=== PATIENT | male | born 1940 | race Caucasian/White ===

== ENCOUNTER 2017-06-21 17:45 | Inpatient (IN) | payer OTHER ==
[2017-06-21 19:22] VITALS: BMI 24.3
--- NOTE | 2017-06-21 21:06 | HP ---
CIWA Score - CIWA Score Nausea/Vomitin-Mild Nausea/No Vomiting Muscle Tremors: 4-Moderate,w/Arms Extend Anxiety: 4-Mod. Anxious/Guarded Agitation: 4-Moderately Restless Paroxysmal Sweats: 1-Minimal Palms Moist Orientation: 1-Uncertain about Date Tacttile Disturbances: 0-None Auditory Disturbances: 0-None Visual Disturbances: 0-None Headache: 0-None Present CIWA-Ar Total Score: 15 Admission ROS [facility] - HPI Chief Complaint: WITHDRAWAL SX Allergies/Adverse Reactions: Allergies Allergy/AdvReac Type Severity Reaction Status Date / Time No Known Allergies Allergy Verified 06/21/17 21:01 History of Present Illness: 76 YEARS OLD MALE WITH LONG HISTORY OF ALCOHOL NICOTINE DEPENDENCE HAS HYPERTENSION DENIES MENTAL ILLNESS IS ADMITTED TO DETOX PATIENT WAS TREATED AT [facility] "HOURS" FOR CHEST PAIN, NEGATIVE FINDING, RELEASED TO [facility] FOR ALCOHOL DETOX Exam Limitations: No Limitations - Ebola screening Have you traveled outside of the country in the last 21 days: No (N) Have you had contact with anyone from an Ebola affected area: No Have you been sick,other than usual withdrawal symptoms: No Do you have a fever: No - Review of Systems Constitutional: Changes in sleep, Weight Stable EENT: reports: Dental Problems (MULTIPLE TEETH MISSING) Respiratory: reports: No Symptoms reported Cardiac: reports: No Symptoms Reported GI: reports: Nausea, Poor Fluid Intake, Abdominal cramping : reports: No Symptoms Reported Musculoskeletal: reports: No Symptoms Reported Integumentary: reports: Bruising (HANDS + ARMS FROM "THEY TRY TO GET BLOOD FROM ME") Neuro: reports: Tremors Endocrine: reports: No Symptoms Reported Hematology: reports: No Symptoms Reported Psychiatric: reports: No Sypmtoms Reported, Judgement Intact, Mood/Affect Appropiate Other Systems: Reviewed and Negative Patient History - Patient Medical History Hx Anemia: No Hx Asthma: No Hx Chronic Obstructive Pulmonary Disease (COPD): No Hx Cancer: No Hx Cardiac Disorders: No Hx Congestive Heart Failure: No Hx Hypertension: No Hx Hypercholesterolemia: No Hx Pacemaker: No HX Cerebrovascular Accident: No Hx Seizures: No Hx Dementia: No Hx Diabetes: No Hx Gastrointestinal Disorders: No Hx Liver Disease: No Hx Genitourinary Disorders: No Hx Sexually Transmitted Disorders: No Hx Renal Disease (ESRD): No Hx Thyroid Disease: No Hx Human Immunodeficiency Virus (HIV): No Hx Hepatitis C: No Hx Depression: No Hx Suicide Attempt: No Hx Bipolar Disorder: No Hx Schizophrenia: No - Patient Surgical History Past Surgical History: No - PPD History Previous Implant?: Yes Documented Results: Negative w/o proof Implanted On Prior [facility] Admission?: No PPD to be Administered?: Yes - Smoking Cessation Smoking history: Current every day smoker Have you smoked in the past 12 months: Yes Aproximately how many cigarettes per day: 1 Cigars Per Day: 0 Hx Chewing Tobacco Use: No Initiated information on smoking cessation: Yes 'Breaking Loose' booklet given: 06/21/17 - Substance & Tx. History Hx Alcohol Use: Yes Hx Substance Use: No Substance Use Type: Alcohol Hx Substance Use Treatment: No - Substances Abused Alcohol Route: Oral Frequency: Daily Amount used: 1/2 P[place]ISKY Age of first use: 15 Date of Last Use: 06/20/17 Family Disease History - Family Disease History Family Disease History: Other: Father (), Mother () Admission Physical Exam [facility] - Vital Signs Vital Signs: Vital Signs - 24 hr 06/21/17 19:15 Temperature 97.5 F L Pulse Rate 112 H Respiratory 18 Rate Blood Pressure 140/87 - Physical General Appearance: Yes: Nourished, Appropriately Dressed, Mild Distress, Tremorous, Irritable, Sweating, Anxious HEENTM: Yes: Hearing grossly Normal, Normal ENT Inspection, Normocephalic, Normal Voice Respiratory: Yes: Chest Non-Tender, Lungs Clear, Normal Breath Sounds, No Respiratory Distress, No Accessory Muscle Use Neck: Yes: Supple, Trachea in good position Breast: Yes: Breasts Symetrical Cardiology: Yes: Regular Rhythm, Regular Rate, S1, S2 Abdominal: Yes: Non Tender, Soft Genitourinary: Yes: Within Normal Limits Back: Yes: Normal Inspection Musculoskeletal: Yes: full range of Motion, Gait Steady Neurological: Yes: Alert, Motor Strength 5/5, Normal Mood/Affect, Normal Response Integumentary: Yes: Warm, Other (MULTIPLE BRUISING FROM HOSPITAL "THEY TRY TO GET BLOOD FROM ME") Lymphatic: Yes: Within Normal Limits - Diagnostic (1) Alcohol dependence with uncomplicated withdrawal Current Visit: Yes Status: Acute (2) Mild hypertension Current Visit: Yes Status: Chronic Comment: NO TREATMENT (3) Nicotine dependence Current Visit: Yes Status: Acute Qualifiers: Nicotine product type: cigarettes Substance use status: in withdrawal Qualified Code(s): F17.213 - Nicotine dependence, cigarettes, with withdrawal Cleared for Admission [facility] - Detox or Rehab [facility] Level of Care: Medically Managed Detox Regimen/Protocol: Librium [facility] Breath Alcohol Content Breath Alcohol Content: 0 Urine Drug Screen - Results Drug Screen Negative: No Urine Drug Screen Results: BZO-Benzodiazepines
[2017-06-21] MEDS ORDERED: MAG HYDROX/AL HYDROX/SIMETH 30 ML UNIT-DOSE CUP PO PRN (21:12)
[2017-06-21] MEDS ORDERED: ACETAMINOPHEN 325 MG TABLET (FP) PO PRN (21:12)
[2017-06-21] MEDS ORDERED: MENTHOL/PHENOL 1 EACH UD MM PRN (21:12)
[2017-06-21] MEDS ORDERED: MAGNESIUM HYDROX 2400MG/30ML ORAL SUSPENSION 30 ML CUP PO PRN (21:12)
[2017-06-21] MEDS ORDERED: diphenhydrAMINE HCL 50 MG CAPSULE PO PRN (21:12)
[2017-06-21] MEDS ORDERED: MAGNESIUM CITRATE 300 ML BOTTLE PO PRN (21:12)
[2017-06-21] MEDS ORDERED: IBUPROFEN 400 MG TABLET (FP) PO PRN (21:12)
[2017-06-21] MEDS ORDERED: hydrOXYzine PAMOATE 50 MG CAPSULE (FP) PO PRN (21:12)
[2017-06-21] MEDS ORDERED: LOPERAMIDE HCL 2 MG CAPSULE PO PRN (21:12)
[2017-06-21] MEDS ORDERED: NICOTINE POLACRILEX 2 MG GUM BC PRN (21:12)
[2017-06-21] MEDS ORDERED: P-EPHED 60MG/TRIPROLIDI 2.5MG TABLET PO PRN (21:12)
[2017-06-21] MEDS ORDERED: NICOTINE 14 MG/24 HOURS TOPICAL PATCH TD PRN (21:12)
[2017-06-21] MEDS ORDERED: guaiFENesin/D-METHORPHAN HB 10 ML UNIT-DOSE CUPS PO PRN (21:12)
[2017-06-21] MEDS: chlordiazePOXIDE HCL 25 MG CAPSULE PO SCH (22:44)
[2017-06-21] MEDS: THIAMINE HCL 100 MG TABLET (FP) PO SCH (22:49)
--- NOTE | 2017-06-22 00:57 | PN ---
S Progress Note Note: Discussed abnormal EKG with the patient. EKG illustrated A-fib. Pt. reports having a history of a-fib and states he not prescribed any anti-coagulants or any other medications for management of a-fib. He denies chest pain, SOB, dyspnea on exertation or lightheadedness. Will continue to monitor. Last Vital Signs Temp Pulse Resp BP Pulse Ox 97.4 F L 59 L 18 147/96 06/21/17 22:51 06/21/17 22:51 06/21/17 22:51 06/21/17 22:51
[2017-06-22] MEDS: chlordiazePOXIDE HCL 25 MG CAPSULE PO SCH ×4 (05:21→22:44)
--- NOTE | 2017-06-22 10:00 | PN ---
[facility] CIWA - CIWA Score Nausea/Vomitin Muscle Tremors: 4-Moderate,w/Arms Extend Anxiety: 3 Agitation: 0-Normal Activity Paroxysmal Sweats: 3 Orientation: 4Disoriented Place/Person Tacttile Disturbances: 2-Mild Itch/Numbness/Burn Auditory Disturbances: 0-None Visual Disturbances: 0-None Headache: 0-None Present CIWA-Ar Total Score: 18 S Progress Note (SOAP) Subjective: Tremors, Fatigue, Interrupted Sleep. Objective: PT. A & O X 1 (DISORIENTED ABOUT DAY / DATE AND ABOUT CURRENT LOCATION). PT. OBSERVED AMBULATING IN ROOM. 06/22/17 10:00 Vital Signs Temperature 97.8 F 06/22/17 06:19 Pulse Rate 76 06/22/17 08:02 Respiratory Rate 18 06/22/17 06:19 Blood Pressure 153/95 06/22/17 08:02 O2 Sat by Pulse Oximetry (%) 06/22/17 10:01 ADMISSION LAB RESULTS PENDING. PATIENT REPORTS HISTORY OF A-FIB AND HTN (PATIENT DENIED THIS ON ADMISSION ASSESSMENT; HOWEVER, HE DID REPORT THAT JUST PRIOR TO ADMISSION TO [facility], HE HAD BEEN IN [facility] ER FOR "CHEST PAIN"). PATIENT HAS POOR RECOLLECTION OF MEDICATIONS THAT HE TAKES FOR THOSE CONDITIONS AND OF WHEN HE LAST TOOK THEM. WHEN ASKED, PATIENT REPORTS THAT HE DOES NOT CURRENTLY HAVE A PRIMARY CARE MEDICAL PROVIDER AND THAT HE GOES TO THE ER TO HAVE MEDICAL ISSUES TREATED WHEN THEY ARISE. 06/22/17 10:07 06/22/17 10:08 06/22/17 10:09 Assessment: 06/22/17 10:01 WITHDRAWAL SYMPTOMS. A-FIB, HTN (UNMANAGED). 06/22/17 10:05 Plan: CONTINUE DETOX. PATIENT TO BE SENT TO ER FOR FURTHER EVALUATION AND MANAGEMENT OF A-FIB AND HTN. SEE FOLLOWING PROGRESS NOTE.
--- NOTE | 2017-06-22 10:23 | PN ---
[facility] Progress Note Note: PATIENT ADMITTED YESTERDAY FOR DETOX FROM ALCOHOL. PATIENT REPORTS HISTORY OF A- FIB AND HTN. PATIENT HAS POOR RECOLLECTION OF MEDICATIONS THAT HE TAKES FOR THOSE TWO CONDITIONS AND OF WHEN HE LAST TOOK EACH OF THOSE MEDICATIONS. WHEN CONTACTED, PHARMACIST (NANNETTE) AT PATIENT'S PHARMACY ([facility], [address] [place] [address]) REPORTS SEVERAL DIFFERENT MEDICATIONS THAT PATIENT PRESCRIBED FOR HTN AND XARELTO (20 MG DAILY) FOR A-FIB. HOWEVER, NOT ALL OF THOSE MEDICATIONS WERE PICKED UP BY PATIENT WHEN LAST PRESCRIBED IN May,. PATIENT CURRENTLY REPORTS FATIGUE AND DIZZINESS. ADMISSION ASSESSMENT FROM YESTERDAY NOTES THAT PATIENT THAT PRIOR TO ADMISSION TO [facility] DETOX, PATIENT HAD BEEN EVALUATED IN [facility] ER FOR CHEST PAIN. AFTER CONSULTATION WITH DR. DEAN MD, PATIENT TO BE SENT TO [facility] ER FOR FURTHER EVALUATION. VS: BP: 153/89; 02: 99%; T; 96.3; P: 86; RR: 18. REPORT GIVEN TO DR. MINDY MD IN [facility] ER. PATIENT TAKEN VIA AMBULANCE TO [facility]. Myron MCDONALD NP.
[2017-06-22 11:08] LABS: URINE APPEARANCE CLEAR; URINE BILIRUBIN NEGATIVE (NEGATIVE); URINE BLOOD NEGATIVE (NEGATIVE); URINE COLOR LTYELLOW; URINE GLUCOSE (UA) NEGATIVE (NEGATIVE); URINE KETONE NEGATIVE (NEGATIVE); URINE LEUK ESTERASE NEGATIVE (NEGATIVE); URINE NITRITE NEGATIVE (NEGATIVE); URINE UROBILINOGEN NEGATIVE mg/dL (0.2-1.0)
[2017-06-22 11:09] LABS: MCH 33.8 pg (25.7-33.7); MCHC 34.1 g/dl (32.0-35.9); MEAN CELL VOLUME 99.3 fl (80-96); MEAN PLT VOLUME 9.1 fl (7.5-11.1); PLATELET COUNT 108 K/MM3 (134-434); RDW 14.9 % (11.9-15.9); WHITE BLOOD COUNT 4.1 K/mm3 (4.0-10.0)
[2017-06-22 11:16] LABS: ALBUMIN 2.5 g/dl (3.4-5.0); ANION GAP 9 (8-16); BILIRUBIN,TOTAL 0.5 mg/dL (0.2-1.0); CALCIUM 7.6 mg/dL (8.5-10.1); CO2 27 mmol/L (21-32); GLUCOSE,RANDOM 196 mg/dL (74-106); SGOT/AST 29 U/L (15-37); SGPT/ALT 28 U/L (12-78)
[2017-06-22 11:17] LABS: ALK PHOS 72 U/L (45-117); CREATININE 1.4 mg/dL (0.7-1.3); TOT PROT 5.2 g/dl (6.4-8.2)
[2017-06-22 11:41] LABS: URINE PROTEIN 1+ (NEGATIVE)
[2017-06-22 11:45] LABS: URINE BACTERIA RARE /hpf (NONE SEEN); URINE HYALINE CAST 1 /lpf; URINE MUCUS RARE; URINE WBC <1 /hpf (3-5)
[2017-06-22] MEDS: PRENATAL VITAMINS W/ FOLIC ACID TABLET (FP) PO SCH (12:08)
--- NOTE | 2017-06-22 18:44 | EKG ---
Test Reason : Blood Pressure : / mmHG Vent. Rate : 105 BPM Atrial Rate : 178 BPM P-R Int : 000 ms QRS Dur : 084 ms QT Int : 344 ms P-R-T Axes : 000 053 062 degrees QTc Int : 454 ms ATRIAL FIBRILLATION WITH RAPID VENTRICULAR RESPONSE SEPTAL INFARCT , AGE UNDETERMINED ABNORMAL ECG NO PREVIOUS ECGS AVAILABLE Confirmed by MONICA MARTINS MD ([id number]) on 06/22/2017 6:44:23 PM Referred By: Copma Bagley Confirmed By:MONICA MARTINS MD
--- NOTE | 2017-06-22 18:44 | EKG ---
Test Reason : Blood Pressure : / mmHG Vent. Rate : 094 BPM Atrial Rate : 129 BPM P-R Int : 000 ms QRS Dur : 084 ms QT Int : 348 ms P-R-T Axes : 000 059 059 degrees QTc Int : 435 ms ATRIAL FIBRILLATION WITH PREMATURE VENTRICULAR OR ABERRANTLY CONDUCTED COMPLEXES SEPTAL INFARCT (CITED ON OR BEFORE 21-JUN-2017) ABNORMAL ECG WHEN COMPARED WITH ECG OF 21-JUN-2017 21:29, NO SIGNIFICANT CHANGE WAS FOUND Confirmed by MONICA MARTINS MD ([id number]) on 06/22/2017 6:44:11 PM Referred By: Compa Bagley Confirmed By:MONICA MARTINS MD
--- NOTE | 2017-06-22 19:41 | PN ---
[facility] Progress Note Note: patient medically return from [facility] for continue detox
[2017-06-22] MEDS: chlordiazePOXIDE HCL 25 MG CAPSULE PO PRN (20:10)
[2017-06-22] MEDS: THIAMINE HCL 100 MG TABLET (FP) PO SCH (22:44)
[2017-06-23] MEDS: chlordiazePOXIDE HCL 25 MG CAPSULE PO SCH ×3 (05:18→17:07)
[2017-06-23] MEDS: chlordiazePOXIDE HCL 25 MG CAPSULE PO PRN (07:28)
[2017-06-23] MEDS: LISINOPRIL 20 MG TABLET (FP) PO SCH (07:54)
[2017-06-23] MEDS: METOPROLOL SUCCINATE 100 MG TAB.SR.24H (FP) PO SCH (07:55)
[2017-06-23] MEDS ORDERED: LISINOPRIL 20 MG TABLET (FP) PO SCH (10:00)
[2017-06-23] MEDS ORDERED: METOPROLOL SUCCINATE 100 MG TAB.SR.24H (FP) PO SCH (10:00)
[2017-06-23] MEDS: PRENATAL VITAMINS W/ FOLIC ACID TABLET (FP) PO SCH (10:55)
[2017-06-23] MEDS: RIVAROXABAN 20 MG TABLET PO SCH (10:59)
--- NOTE | 2017-06-23 14:54 | PN ---
S CIWA - CIWA Score Nausea/Vomitin Muscle Tremors: 3 Anxiety: 4-Mod. Anxious/Guarded Agitation: 2 Paroxysmal Sweats: 3 Orientation: 0-Oriented Tacttile Disturbances: 1-Very Mild Itch/Numbness Auditory Disturbances: 0-None Visual Disturbances: 0-None Headache: 2-Mild CIWA-Ar Total Score: 18 [facility] Progress Note (SOAP) Subjective: Interrupted sleep, anxious, sweating Objective: 06/23/17 14:51 Last Vital Signs Temp Pulse Resp BP Pulse Ox 97.0 F L 70 20 121/72 06/23/17 13:37 06/23/17 13:37 06/23/17 13:37 06/23/17 13:37 Laboratory Tests 06/21/17 06/22/17 06/22/17 10:55 08:00 08:00 WBC 4.1 RBC 4.00 Hgb 13.5 Hct 39.7 MCV 99.3 H MCH 33.8 H MCHC 34.1 RDW 14.9 Plt Count 108 L MPV 9.1 Sodium Potassium Chloride Carbon Dioxide Anion Gap BUN Creatinine Creat Clearance w eGFR Random Glucose Calcium Total Bilirubin AST ALT Alkaline Phosphatase Total Protein Albumin Urine Color Ltyellow Urine Appearance Clear Urine pH 7.0 Ur Specific [place] 1.015 Urine Protein 1+ H Urine Glucose (UA) Negative Urine Ketones Negative Urine Blood Negative Urine Nitrite Negative Urine Bilirubin Negative Urine Urobilinogen Negative Ur Leukocyte Esterase Negative Urine RBC None Urine WBC <1 Ur Epithelial Cells Rare Urine Bacteria Rare Hyaline Casts 1 Urine Mucus Rare RPR Titer Hepatitis C Antibody >11.0 H 06/22/17 06/22/17 08:00 08:00 WBC RBC Hgb Hct MCV MCH MCHC RDW Plt Count MPV Sodium 142 Potassium 3.1 L Chloride 106 Carbon Dioxide 27 Anion Gap 9 BUN 26 H Creatinine 1.4 H Creat Clearance w eGFR 49.27 Random Glucose 196 H Calcium 7.6 L Total Bilirubin 0.5 AST 29 ALT 28 Alkaline Phosphatase 72 Total Protein 5.2 L Albumin 2.5 L Urine Color Urine Appearance Urine pH Ur Specific [place] Urine Protein Urine Glucose (UA) Urine Ketones Urine Blood Urine Nitrite Urine Bilirubin Urine Urobilinogen Ur Leukocyte Esterase Urine RBC Urine WBC Ur Epithelial Cells Urine Bacteria Hyaline Casts Urine Mucus RPR Titer Nonreactive Hepatitis C Antibody Labs noted: last lab result on 06/22/17 shows: K 3.6, BUN 28, serum creatinine 1.1 Assessment: 06/23/17 14:52 Withdrawal symptoms Noted with azotemia Plan: Continue detox Azotemia: encouraged to drink more water for hydration
[2017-06-23] MEDS ORDERED: POTASSIUM CHLORIDE TABS 20 MEQ TABLET.ER (FP) PO ONE (19:06)
--- NOTE | 2017-06-23 19:09 | PN ---
[facility] Progress Note Note: k 3.1,bun 26,creat 1.4 hypokalemia with azothemia k dur 20 meq po now ,encourage oral fludi,k repeat bmp in am
[2017-06-23] MEDS: THIAMINE HCL 100 MG TABLET (FP) PO SCH (22:10)
[2017-06-23] MEDS: chlordiazePOXIDE 5 MG CAPSULE PO SCH (22:11)
[2017-06-24] MEDS: LISINOPRIL 20 MG TABLET (FP) PO SCH (05:29)
[2017-06-24] MEDS: chlordiazePOXIDE 5 MG CAPSULE PO SCH ×3 (05:29→17:10)
[2017-06-24] MEDS: METOPROLOL SUCCINATE 100 MG TAB.SR.24H (FP) PO SCH (05:29)
[2017-06-24] MEDS: RIVAROXABAN 20 MG TABLET PO SCH (10:09)
[2017-06-24] MEDS: PRENATAL VITAMINS W/ FOLIC ACID TABLET (FP) PO SCH (10:09)
[2017-06-24 10:33] LABS: ANION GAP 10 (8-16); CALCIUM 8.1 mg/dL (8.5-10.1); CO2 27 mmol/L (21-32); CREATININE 1.3 mg/dL (0.7-1.3); GLUCOSE,RANDOM 166 mg/dL (74-106)
--- NOTE | 2017-06-24 11:39 | PN ---
S Progress Note (SOAP) Subjective: Sweating, Fatigue, Tremors, H/A, Fatigue. Objective: PT. A & O X 2 (DISORIENTED ABOUT DAY / DATE). PT. OBSERVED AMBULATING ON UNIT. NO ACUTE DISTRESS. PT. DENIES CHEST PAIN. 06/24/17 11:35 Vital Signs Temperature 97.1 F L 06/24/17 09:27 Pulse Rate 72 06/24/17 09:27 Respiratory Rate 18 06/24/17 09:27 Blood Pressure 140/88 06/24/17 09:27 O2 Sat by Pulse Oximetry (%) Laboratory Tests 06/21/17 06/22/17 06/22/17 10:55 08:00 08:00 WBC 4.1 RBC 4.00 Hgb 13.5 Hct 39.7 MCV 99.3 H MCH 33.8 H MCHC 34.1 RDW 14.9 Plt Count 108 L MPV 9.1 Sodium Potassium Chloride Carbon Dioxide Anion Gap BUN Creatinine Creat Clearance w eGFR Random Glucose Calcium Total Bilirubin AST ALT Alkaline Phosphatase Total Protein Albumin Urine Color Ltyellow Urine Appearance Clear Urine pH 7.0 Ur Specific [place] 1.015 Urine Protein 1+ H Urine Glucose (UA) Negative Urine Ketones Negative Urine Blood Negative Urine Nitrite Negative Urine Bilirubin Negative Urine Urobilinogen Negative Ur Leukocyte Esterase Negative Urine RBC None Urine WBC <1 Ur Epithelial Cells Rare Urine Bacteria Rare Hyaline Casts 1 Urine Mucus Rare RPR Titer Hepatitis C Antibody >11.0 H 06/22/17 06/22/17 06/24/17 08:00 08:00 07:00 WBC RBC Hgb Hct MCV MCH MCHC RDW Plt Count MPV Sodium 142 141 Potassium 3.1 L 3.3 L Chloride 106 104 Carbon Dioxide 27 27 Anion Gap 9 10 BUN 26 H 30 H Creatinine 1.4 H 1.3 Creat Clearance w eGFR 49.27 Random Glucose 196 H 166 H Calcium 7.6 L 8.1 L Total Bilirubin 0.5 AST 29 ALT 28 Alkaline Phosphatase 72 Total Protein 5.2 L Albumin 2.5 L Urine Color Urine Appearance Urine pH Ur Specific [place] Urine Protein Urine Glucose (UA) Urine Ketones Urine Blood Urine Nitrite Urine Bilirubin Urine Urobilinogen Ur Leukocyte Esterase Urine RBC Urine WBC Ur Epithelial Cells Urine Bacteria Hyaline Casts Urine Mucus RPR Titer Nonreactive Hepatitis C Antibody LABS NOTED. RESULTS OF REPEAT COMP. META. NOTED. 06/24/17 11:39 Assessment: 06/24/17 11:38 WITHDRAWAL SYMPTOMS. Plan: CONTINUE DETOX. K, 20 MEQ PO X 1 NOW, THEN 20 MEQ PO BID. D/C MAGNESIUM-CONTAINING MEDS. PATIENT INFORMED ABOUT POSITIVE RESULT OF ADMISSION HCV ANTIBODY TEST. PATIENT REPORTS HISTORY OF POSITIVE HCV HISTORY (NO TREATMENT). PATIENT ADVISED TO FOLLOW-UP WITH CRIME LAB ANALYST (PATIENT UNABLE TO RECALL NAME OF CRIME LAB ANALYST) OR TO GO TO [facility] FOR FURTHER EVALUATION AND FOLLOW-UP CARE AFTER DISCHARGE FROM DETOX. PATIENT VERBALIZED UNDERSTANDING OF RECOMMENDATIONS.
[2017-06-24] MEDS ORDERED: POTASSIUM CHLORIDE TABS 20 MEQ TABLET.ER (FP) PO ONE (12:30)
--- NOTE | 2017-06-24 15:24 | CONSULT ---
[facility] Psychiatric Consult - Data Date of interview: 06/24/17 Admission source: [facility] Identifying data: First admission to [facility] for this 76 y/o [place] male seeking detox treatmet on for alcohol dependence.Patient is ,a father of five,domiciled (lives alone),unemployed (retired from [employer] in [place]) and supported on SSI benefits as per self-report. Substance Abuse History: Discussed with Mr tan in this session.He confirms this report as an accurate account of his addiction to alcohol. Smoking Cessation. Smoking history: Current every day smoker. Have you smoked in the past 12 months: Yes. Aproximately how many cigarettes per day: 1. Cigars Per Day: 0. Hx Chewing Tobacco Use: No. Initiated information on smoking cessation : Yes. 'Breaking Loose' booklet given: 06/21/17. - Substance & Tx. History. Hx Alcohol Use: Yes. Hx Substance Use: No. Substance Use Type: Alcohol. Hx Substance Use Treatment: No. - Substances Abused. Alcohol. Route: Oral. Frequency: Daily. Amount used: 1/2 [place]. Age of first use: 15. Date of Last Use: 06/20/17 Medical History: Hypertension. Psychiatric History: Patient denies. Physical/Sexual Abuse/Trauma History: Patient denies. Additional Comment: Urine Drug Screen Results: BZO-Benzodiazepines.Noted. Mental Status Exam - Mental Status Exam Alert and Oriented to: Time (partially oriented to time : accurate about year 2017 but believes month to be February.Not oriented to exact date), Place, Person Patient Appearance: Well Groomed (appears his stated age) Mood: Hopeful, Euthymic (calm and serene) Affect: Appropriate, Normal Range Patient Behavior: Fatigued, Cooperative (friendly and well-mannered ) Speech Pattern: Clear, Appropriate Voice Loudness: Normal Thought Process: Intact, Goal Oriented Thought Disorder: Not Present Hallucinations: Denies Suicidal Ideation: Denies Homicidal Ideation: Denies Insight/Judgement: Poor Sleep: Poorly, Difficulty falling asleep Appetite: Good Muscle strength/Tone: Normal Gait/Station: Normal Psychiatric Findings - Problem List ([place] 1, 2,3) (1) Alcohol dependence with uncomplicated withdrawal Current Visit: Yes Status: Acute (2) Nicotine dependence Current Visit: Yes Status: Acute Qualifiers: Nicotine product type: cigarettes Substance use status: in withdrawal Qualified Code(s): F17.213 - Nicotine dependence, cigarettes, with withdrawal (3) Mild hypertension Current Visit: Yes Status: Chronic Comment: NO TREATMENT (4) Insomnia Current Visit: Yes Status: Acute - Initial Treatment Plan Initial Treatment Plan: Psychoeducation.Detoxification.Insomnia is addressed with benadryl 50 mg po hs prn.Side effects/benefits discussed with the patient.He agrees with careplan.Fall precautions.Observation.
[2017-06-24] MEDS ORDERED: POTASSIUM CHLORIDE TABS 20 MEQ TABLET.ER (FP) PO SCH (22:00)
[2017-06-24] MEDS: POTASSIUM CHLORIDE ORAL LIQUID 20 MEQ/15 ML PO SCH (22:07)
[2017-06-24] MEDS: THIAMINE HCL 100 MG TABLET (FP) PO SCH (22:07)
[2017-06-24] MEDS: chlordiazePOXIDE HCL 10 MG CAPSULE PO SCH (22:07)
[2017-06-25] MEDS: METOPROLOL SUCCINATE 100 MG TAB.SR.24H (FP) PO SCH (05:28)
[2017-06-25] MEDS: chlordiazePOXIDE HCL 10 MG CAPSULE PO SCH ×3 (05:28→17:09)
[2017-06-25] MEDS: LISINOPRIL 20 MG TABLET (FP) PO SCH (05:28)
[2017-06-25] MEDS ORDERED: cloNIDine HCL 0.1 MG TABLET PO ONE (07:26)
[2017-06-25] MEDS ORDERED: METOPROLOL SUCCINATE 100 MG TAB.SR.24H (FP) PO SCH (10:00)
[2017-06-25] MEDS ORDERED: TAMSULOSIN HCL 0.4 MG CAP.ER.24H (FP) PO ONE (10:15)
--- NOTE | 2017-06-25 11:04 | PN ---
S Progress Note (SOAP) Subjective: Interrupted Sleep, Lethargy, Body Aches. Objective: PT. A & O X 3, OBSERVED AMBULATING ON UNIT. NO ACUTE DISTRESS. PT. DENIES CHEST PAIN. 06/25/17 10:59 Vital Signs Temperature 97.6 F 06/25/17 09:12 Pulse Rate 69 06/25/17 09:12 Respiratory Rate 18 06/25/17 09:12 Blood Pressure 152/100 06/25/17 09:12 O2 Sat by Pulse Oximetry (%) Laboratory Tests 06/21/17 06/22/17 06/22/17 10:55 08:00 08:00 WBC 4.1 RBC 4.00 Hgb 13.5 Hct 39.7 MCV 99.3 H MCH 33.8 H MCHC 34.1 RDW 14.9 Plt Count 108 L MPV 9.1 Sodium Potassium Chloride Carbon Dioxide Anion Gap BUN Creatinine Creat Clearance w eGFR Random Glucose Calcium Total Bilirubin AST ALT Alkaline Phosphatase Total Protein Albumin Urine Color Ltyellow Urine Appearance Clear Urine pH 7.0 Ur Specific [place] 1.015 Urine Protein 1+ H Urine Glucose (UA) Negative Urine Ketones Negative Urine Blood Negative Urine Nitrite Negative Urine Bilirubin Negative Urine Urobilinogen Negative Ur Leukocyte Esterase Negative Urine RBC None Urine WBC <1 Ur Epithelial Cells Rare Urine Bacteria Rare Hyaline Casts 1 Urine Mucus Rare RPR Titer Hepatitis C Antibody >11.0 H 06/22/17 06/22/17 06/24/17 08:00 08:00 07:00 WBC RBC Hgb Hct MCV MCH MCHC RDW Plt Count MPV Sodium 142 141 Potassium 3.1 L 3.3 L Chloride 106 104 Carbon Dioxide 27 27 Anion Gap 9 10 BUN 26 H 30 H Creatinine 1.4 H 1.3 Creat Clearance w eGFR 49.27 Random Glucose 196 H 166 H Calcium 7.6 L 8.1 L Total Bilirubin 0.5 AST 29 ALT 28 Alkaline Phosphatase 72 Total Protein 5.2 L Albumin 2.5 L Urine Color Urine Appearance Urine pH Ur Specific [place] Urine Protein Urine Glucose (UA) Urine Ketones Urine Blood Urine Nitrite Urine Bilirubin Urine Urobilinogen Ur Leukocyte Esterase Urine RBC Urine WBC Ur Epithelial Cells Urine Bacteria Hyaline Casts Urine Mucus RPR Titer Nonreactive Hepatitis C Antibody LABS NOTED. Assessment: 06/25/17 11:00 WITHDRAWAL SYMPTOMS. HTN. HYPOKALEMIA. 06/25/17 11:07 Plan: CONTINUE DETOX. DUE TO CURRENT SYMPTOMATOLOGY, PATIENT NOT DISCHARGED TODAY. WILL REMAIN ON UNIT FOR FURTHER EVALUATION. LOPRESSOR CHANGED TO 50 MG PO BID. START AMLODIPINE, 10 MG PO DAILY. START LASIX 40 MG PO DAILY. START FLOMAX, 0.4 MG PO DAILY (PATIENT PREVIOUSLY PRESCRIBED PRIOR TO ADMISSION TO DETOX). BMP AND AMMONIA LEVEL ORDERED. BGM BIDAC FOR ELEVATED RANDOM GLUCOSE LEVELS.
[2017-06-25] MEDS: POTASSIUM CHLORIDE ORAL LIQUID 20 MEQ/15 ML PO SCH ×2 (11:07→22:15)
[2017-06-25] MEDS: RIVAROXABAN 20 MG TABLET PO SCH (11:07)
[2017-06-25] MEDS: PRENATAL VITAMINS W/ FOLIC ACID TABLET (FP) PO SCH (11:07)
[2017-06-25] MEDS: amLODIPine BESYLATE 10 MG TABLET (FP) PO SCH (11:08)
[2017-06-25] MEDS: FUROSEMIDE 40 MG TABLET (FP) PO SCH (11:08)
[2017-06-25] MEDS: METOPROLOL TARTRATE 50 MG TABLET (FP) PO SCH ×2 (11:08→22:15)
[2017-06-25 11:53] LABS: ANION GAP 9 (8-16); CALCIUM 7.6 mg/dL (8.5-10.1); CO2 30 mmol/L (21-32); CREATININE 1.3 mg/dL (0.7-1.3); GLUCOSE,RANDOM 228 mg/dL (74-106)
--- NOTE | 2017-06-25 13:26 | PN ---
S Progress Note Note: Results of BMP and Ammonia levels drawn earlier today noted. No need for further action at this time. Continue K, 20 MEQ PO BID. Myron Birmingham NP
[2017-06-25] MEDS: THIAMINE HCL 100 MG TABLET (FP) PO SCH (22:15)
[2017-06-26] MEDS: LISINOPRIL 20 MG TABLET (FP) PO SCH (05:30)
[2017-06-26] MEDS ORDERED: TAMSULOSIN HCL 0.4 MG CAP.ER.24H (FP) PO SCH (08:30)
[2017-06-26] MEDS: RIVAROXABAN 20 MG TABLET PO SCH (09:05)
[2017-06-26] MEDS: amLODIPine BESYLATE 10 MG TABLET (FP) PO SCH (09:05)
[2017-06-26] MEDS: POTASSIUM CHLORIDE ORAL LIQUID 20 MEQ/15 ML PO SCH (09:05)
[2017-06-26] MEDS: PRENATAL VITAMINS W/ FOLIC ACID TABLET (FP) PO SCH (09:05)
[2017-06-26] MEDS: FUROSEMIDE 40 MG TABLET (FP) PO SCH (09:05)
[2017-06-26] MEDS: METOPROLOL TARTRATE 50 MG TABLET (FP) PO SCH (09:06)
[2017-06-26 09:20] VITALS: BP 156/95; PULSE 90; TEMP 97.5
--- NOTE | 2017-06-26 12:36 | DS ---
[facility] Detox Discharge Summary Admission Date: 06/21/17 Discharge Date: 06/26/17 - History Present History: Alcohol Dependence Additional Comments: AFTER DISCUSSION WITH PATIENT'S DAUGHTER, ARRANGEMENTS MADE FOR PATIENT TO BE TAKEN BACK TO HOME ([place], [place]) AFTER DISCHARGE FROM DETOX. PER ARRANGEMENT WITH DAUGHTER, PATIENT WILL BE GREETED BY SISTER UPON ARRIVAL AT HOME AND SISTER WILL PROVIDE ASSISTANCE TO PATIENT HE SETTLES BACK IN TO BEING AT HOME. PATIENT RECEPTIVE TO DISCHARGE ARRANGEMENTS. PRESCRIPTIONS FOR DISCHARGE MEDICATIONS SENT TO [facility] SO THAT PATIENT MAY BE ABLE TO TAKE HOME WITH AT DISCHARGE. COPIES OF ALL LABWORK DRAWN WHILE ADMITTED FOR DETOX GIVEN TO PATIENT AT TIME OF DISCHARGE. PATIENT ADVISED TO FOLLOW-UP WITH MEDICAL CLINIC AT [facility] FOR MEDICAL ASSESSMENT SOON POSSIBLE AFTER DISCHARGE. PATIENT VERBALIZED UNDERSTANDING OF ALL RECOMMENDATIONS. ARRANGEMENT MADE FOR [facility] TO TRANSPORT PATIENT DIRECTLY TO HIS HOME AFTER DISCHARGE. PATIENT DISCHARGED FROM UNIT IN STABLE MEDICAL CONDITION. Pertinent Past History: HTN, A-Fib, Insomnia. - Physical Exam Results Vital Signs: Vital Signs Temperature 97.5 F L 06/26/17 09:18 Pulse Rate 90 06/26/17 09:18 Respiratory Rate 20 06/26/17 09:18 Blood Pressure 156/95 06/26/17 09:18 O2 Sat by Pulse Oximetry (%) Pertinent Admission Physical Exam Findings: WITHDRAWAL SYMPTOMS. Laboratory Tests 06/21/17 06/22/17 06/22/17 10:55 08:00 08:00 WBC 4.1 RBC 4.00 Hgb 13.5 Hct 39.7 MCV 99.3 H MCH 33.8 H MCHC 34.1 RDW 14.9 Plt Count 108 L MPV 9.1 Sodium Potassium Chloride Carbon Dioxide Anion Gap BUN Creatinine Creat Clearance w eGFR POC Glucometer Random Glucose Calcium Total Bilirubin AST ALT Alkaline Phosphatase Ammonia Total Protein Albumin Urine Color Ltyellow Urine Appearance Clear Urine pH 7.0 Ur Specific [place] 1.015 Urine Protein 1+ H Urine Glucose (UA) Negative Urine Ketones Negative Urine Blood Negative Urine Nitrite Negative Urine Bilirubin Negative Urine Urobilinogen Negative Ur Leukocyte Esterase Negative Urine RBC None Urine WBC <1 Ur Epithelial Cells Rare Urine Bacteria Rare Hyaline Casts 1 Urine Mucus Rare RPR Titer Hepatitis C Antibody >11.0 H HCV Quantitation HCV RNA PCR log picture copyist/ml 06/22/17 06/22/17 06/24/17 08:00 08:00 07:00 WBC RBC Hgb Hct MCV MCH MCHC RDW Plt Count MPV Sodium 142 141 Potassium 3.1 L 3.3 L Chloride 106 104 Carbon Dioxide 27 27 Anion Gap 9 10 BUN 26 H 30 H Creatinine 1.4 H 1.3 Creat Clearance w eGFR 49.27 POC Glucometer Random Glucose 196 H 166 H Calcium 7.6 L 8.1 L Total Bilirubin 0.5 AST 29 ALT 28 Alkaline Phosphatase 72 Ammonia Total Protein 5.2 L Albumin 2.5 L Urine Color Urine Appearance Urine pH Ur Specific [place] Urine Protein Urine Glucose (UA) Urine Ketones Urine Blood Urine Nitrite Urine Bilirubin Urine Urobilinogen Ur Leukocyte Esterase Urine RBC Urine WBC Ur Epithelial Cells Urine Bacteria Hyaline Casts Urine Mucus RPR Titer Nonreactive Hepatitis C Antibody HCV Quantitation HCV RNA PCR log picture copyist/ml 06/24/17 06/25/17 06/25/17 09:00 11:00 11:00 WBC RBC Hgb Hct MCV MCH MCHC RDW Plt Count MPV Sodium 142 Potassium 3.6 Chloride 103 Carbon Dioxide 30 Anion Gap 9 BUN 30 H Creatinine 1.3 Creat Clearance w eGFR POC Glucometer Random Glucose 228 H D Calcium 7.6 L Total Bilirubin AST ALT Alkaline Phosphatase Ammonia 31.63 Total Protein Albumin Urine Color Urine Appearance Urine pH Ur Specific [place] Urine Protein Urine Glucose (UA) Urine Ketones Urine Blood Urine Nitrite Urine Bilirubin Urine Urobilinogen Ur Leukocyte Esterase Urine RBC Urine WBC Ur Epithelial Cells Urine Bacteria Hyaline Casts Urine Mucus RPR Titer Hepatitis C Antibody HCV Quantitation Hcv not detected HCV RNA PCR log picture copyist/ml TNP 06/25/17 06/26/17 16:43 06:25 WBC RBC Hgb Hct MCV MCH MCHC RDW Plt Count MPV Sodium Potassium Chloride Carbon Dioxide Anion Gap BUN Creatinine Creat Clearance w eGFR POC Glucometer 259 286 Random Glucose Calcium Total Bilirubin AST ALT Alkaline Phosphatase Ammonia Total Protein Albumin Urine Color Urine Appearance Urine pH Ur Specific [place] Urine Protein Urine Glucose (UA) Urine Ketones Urine Blood Urine Nitrite Urine Bilirubin Urine Urobilinogen Ur Leukocyte Esterase Urine RBC Urine WBC Ur Epithelial Cells Urine Bacteria Hyaline Casts Urine Mucus RPR Titer Hepatitis C Antibody HCV Quantitation HCV RNA PCR log picture copyist/ml LABS NOTED. - Treatment Hospital Course: Detox Protocol Followed, Detoxed Safely, Responded well, Discharged Condition Good Patient has Accepted a Rehab Referral to: PT. GOING HOME. ADVISED TO CONSIDER LOCAL [facility]/12-STEP GROUP FOR AFTERCARE. - Medication Discharge Medications: Ambulatory Orders Furosemide [Lasix] 60 mg PO DAILY #90 tablet 06/22/17 Metoprolol Succinate [Toprol XL -] 100 mg PO DAILY #30 tab.sr.24h 06/22/17 Amlodipine Besylate 10 mg PO DAILY #30 tablet 06/26/17 Furosemide [Lasix] 40 mg PO DAILY #30 tablet 06/26/17 Lisinopril [Prinivil -] 40 mg PO DAILY #30 tablet 06/26/17 Metoprolol Tartrate [Lopressor] 50 mg PO BID #60 tablet 06/26/17 Potassium Chloride [K-Dur -] 20 meq PO DAILY #30 tablet.er 06/26/17 Rivaroxaban [Xarelto -] 20 mg PO DAILY #30 tablet 06/26/17 - Diagnosis (1) Afib Status: Chronic Qualifiers: Atrial fibrillation type: chronic Qualified Code(s): I48.2 - Chronic atrial fibrillation (2) Alcohol dependence with uncomplicated withdrawal Status: Acute (3) Insomnia Status: Acute Qualifiers: Insomnia type: unspecified Qualified Code(s): G47.00 - Insomnia, unspecified (4) Nicotine dependence Status: Chronic Qualifiers: Nicotine product type: cigarettes Substance use status: in withdrawal Qualified Code(s): F17.213 - Nicotine dependence, cigarettes, with withdrawal (5) Mild hypertension Status: Chronic - AMA Did Patient Leave Against Medical Advice: No
== END 2017-06-26 11:55 | disposition home or self-care (01) | DRG 897 ==
LOC: YASAS 17:45 → Y3N 20:52
PROVIDERS: ADMIT Internal Medicine; ATTEND Internal Medicine
PROC: HZ2ZZZZ Detoxification Services for Substance Abuse Treatment (ICD-10-PCS; principal; 2017-06-26)
DX: F10.230 Alcohol dependence with withdrawal, uncomplicated (principal); F17.213 Nicotine dependence, cigarettes, with withdrawal; I48.2 Chronic atrial fibrillation; Z79.01 Long term (current) use of anticoagulants; I10 Essential (primary) hypertension; G47.00 Insomnia, unspecified
CPT/HCPCS: 36415; 71020-TC; 80048; 80053; 81003; 81015; 82140; 85027; 86593; 86803; 87522; 93005; 93010

== ENCOUNTER 2017-06-22 10:18 | Emergency (ER) | payer OTHER ==
[2017-06-22 10:32] VITALS: BMI 25.5
[2017-06-22] MEDS ORDERED: SODIUM CHLORIDE 500 ML IV STA (10:48)
--- NOTE | 2017-06-22 10:51 | PDOC ---
History of Present Illness - General Chief Complaint: Lightheaded Stated Complaint: DIZZY Time Seen by Provider: 06/22/17 10:30 - History of Present Illness Initial Comments: 06/22/17 10:46 Patient is a 76 year old male with a significant past medical history of HTN, afib, and EtOH abuse who presents to the ED from [facility] Detox with complaint of generalized weakness for 1 day. He reports nausea and epigastric abdominal pain. Patient states that he was admitted to [facility] last week for chest pain and was subsequently sent to [facility] for alcohol detox. He states his last drink was a couple of days ago. He denies any chest pain, SOB, left sided weakness, fever, chills, vomiting, diarrhea, constipation, change in vision, LOC or leg weakness. He denies any hx of withdrawal seizures. I called [facility] to confirm pt's med list. Pt is very well known to their ER and was last seen in the [place] ER yesterday for chest pain and discharged to rehab facility after serial troponins. Pt is currently on Lasix 60mg, lisinopril 40, Rivaroxaban 20mg, metop 100mg, amlodipine 10mg. Past History - Past Medical History Allergies/Adverse Reactions: Allergies Allergy/AdvReac Type Severity Reaction Status Date / Time No Known Allergies Allergy Verified 06/21/17 21:01 Home Medications: Ambulatory Orders Furosemide [Lasix] 60 mg PO DAILY #90 tablet 06/22/17 Lisinopril 10 mg PO DAILY #30 tablet 06/22/17 Lisinopril [Prinivil -] 40 mg PO DAILY #30 tablet 06/22/17 Metoprolol Succinate [Toprol XL -] 100 mg PO DAILY #30 tab.sr.24h 06/22/17 Rivaroxaban [Xarelto -] 20 mg PO DAILY #30 tablet 06/22/17 Anemia: No Asthma: No Cancer: No Cardiac Disorders: No CVA: No COPD: No CHF: No Dementia: No Diabetes: No GI Disorders: No Disorders: No HTN: No Hypercholesterolemia: No Kidney Stones: No Liver Disease: No Suicide Attempt (Hx): No Seizures: No Thyroid Disease: No - Surgical History Abdominal Surgery: No Appendectomy: No Cardiac Surgery: No Cholecystectomy: No Lung Surgery: No Neurologic Surgery: No Orthopedic Surgery: No - Reproductive History Testicular Surgery: No - Psycho/Social/Smoking Cessation Hx Anxiety: No Suicidal Ideation: No Smoking History: Unknown if ever smoked Have you smoked in the past 12 months: Yes Number of Cigarettes Smoked Daily: 1 Cigars Per Day: 0 'Breaking Loose' booklet given: 06/21/17 Hx Alcohol Use: No Drug/Substance Use Hx: No Substance Use Type: Alcohol Hx Substance Use Treatment: No Review of Systems - Review of Systems Comments:: 06/22/17 10:51 "GENERAL/CONSTITUTIONAL: (+)generalized weakness. No fever or chills. HEAD, EYES, EARS, NOSE AND THROAT: No change in vision. No ear pain or discharge. No sore throat. GASTROINTESTINAL: (+)nausea, abdominal pain. No vomiting, diarrhea or constipation. GENITOURINARY: No dysuria, frequency, or change in urination. CARDIOVASCULAR: No chest pain or shortness of breath. RESPIRATORY: No cough, wheezing, or hemoptysis. MUSCULOSKELETAL: No joint or muscle swelling or pain. No neck or back pain. SKIN: No rash NEUROLOGIC: No headache, vertigo, loss of consciousness, or change in strength/ sensation. ENDOCRINE: No increased thirst. No abnormal weight change. HEMATOLOGIC/LYMPHATIC: No anemia, easy bleeding, or history of blood clots. ALLERGIC/IMMUNOLOGIC: No hives or skin allergy. " *Physical Exam - Vital Signs Last Vital Signs Temp Pulse Resp BP Pulse Ox 97.6 F 98 H 18 158/107 98 06/22/17 10:28 06/22/17 10:28 06/22/17 10:28 06/22/17 10:28 06/22/17 10:28 - Physical Exam Comments: 06/22/17 10:52 "GENERAL: Awake, alert, and fully oriented, in no acute distress, no tremors. HEAD: No signs of trauma EYES: PERRLA, EOMI, sclera anicteric, conjunctiva clear ENT: NO tongue fasciculations. Auricles normal inspection, hearing grossly normal, nares patent, oropharynx clear without exudates. Moist mucosa NECK: Normal ROM, supple, no lymphadenopathy, JVD, or masses LUNGS: Breath sounds equal, clear to auscultation bilaterally. No wheezes, and no crackles HEART: Regular rate and rhythm, normal S1 and S2, no murmurs, rubs or gallops ABDOMEN: (+)mild epigastric abdominal tenderness. Soft, normoactive bowel sounds. No guarding, no rebound. No masses EXTREMITIES: Normal range of motion, no edema. No clubbing or cyanosis. No cords, erythema, or tenderness NEUROLOGICAL: Cranial nerves II through XII grossly intact. Normal speech, normal gait, NO tremor SKIN: Warm, Dry, normal turgor, no rashes or lesions noted. " Heart Score/ECG Review - ECG Impressions Comment:: 06/22/17 11:19 atrial fibrillation with rate 80, no AYO/STDs, no TWIs, QTc wnl, QRS wnl ED Treatment Course - LABORATORY CBC & Chemistry Diagram: 06/22/17 11:05 06/22/17 11:05 - RADIOLOGY Radiology Studies Ordered: Category Date Time Status CHEST PA & LAT [RAD] Stat Radiology 06/22/17 10:39 Ordered Medical Decision Making - Medical Decision Making 06/22/17 10:52 76 M with HTN, afib, ETOH abuse presents to ER with generalized weakness, nausea , and epigastric pain. Differential is broad given pt's nonspecific complaints. Will evaluate for infectious process with UA and CXR. Abdomen notable only for epigastric TTP, likely gastritis related. Will r/o pancreatitis with serum lipase. Pt with no chest pain/SOB, but will cycle troponins to r/o ACS. - Labs, trop - CXR, UA - IVF 06/22/17 16:35 Trop negative x2. Pt reassessed. Now feels significantly better. Able to tolerate PO. Denies abdominal pain. Exam with benign abdomen. Refills for patient's prescriptions (as confirmed with [facility]) sent to [facility] pharmacy. Stable for DC back to [facility]. *DC/Admit/Observation/Transfer Diagnosis at time of Disposition: Lightheaded - Discharge Dispostion Disposition: I.P. ALCOHOL/SUBS ABUSE REHAB Condition at time of disposition: Stable - Prescriptions Prescriptions: Furosemide [Lasix] 60 mg PO DAILY #90 tablet Lisinopril 10 mg PO DAILY #30 tablet Lisinopril [Prinivil -] 40 mg PO DAILY #30 tablet Metoprolol Succinate [Toprol XL -] 100 mg PO DAILY #30 tab.sr.24h Rivaroxaban [Xarelto -] 20 mg PO DAILY #30 tablet
[2017-06-22] MEDS ORDERED: chlordiazePOXIDE HCL 25 MG CAPSULE PO ONE (11:20)
[2017-06-22] MEDS ORDERED: chlordiazePOXIDE HCL 25 MG CAPSULE ONE (11:23)
[2017-06-22 11:28] LABS: BASOPHIL 0.8 % (0-2.0); EOSINOPHIL 1.7 % (0-4.5); MCH 33.3 pg (25.7-33.7); MEAN CELL VOLUME 97.8 fl (80-96); MEAN PLT VOLUME 9.3 fl (7.5-11.1); NEUTROPHILS 65.9 % (42.8-82.8); PLATELET COUNT 114 K/MM3 (134-434); RDW 14.6 % (11.9-15.9); WHITE BLOOD COUNT 4.7 K/mm3 (4.0-10.0)
[2017-06-22 11:29] LABS: URINE APPEARANCE CLEAR; URINE BILIRUBIN NEGATIVE (NEGATIVE); URINE BLOOD NEGATIVE (NEGATIVE); URINE COLOR STRAW; URINE GLUCOSE (UA) NEGATIVE (NEGATIVE); URINE KETONE NEGATIVE (NEGATIVE); URINE LEUK ESTERASE NEGATIVE (NEGATIVE); URINE NITRITE NEGATIVE (NEGATIVE); URINE PROTEIN NEGATIVE (NEGATIVE); URINE UROBILINOGEN NEGATIVE mg/dL (0.2-1.0)
[2017-06-22 11:42] LABS: INR 0.96 (0.82-1.09); PROTHROMBIN TIME (PATIENT) 10.6 SEC (9.98-11.88)
[2017-06-22 11:45] LABS: ACTIVATED PTT 27.2 SECONDS (26.9-34.4)
[2017-06-22 11:54] LABS: ALBUMIN 2.5 g/dl (3.4-5.0); ANION GAP 7 (8-16); CO2 28 mmol/L (21-32); CREATININE 1.1 mg/dL (0.7-1.3); GLUCOSE,RANDOM 164 mg/dL (74-106); SGOT/AST 31 U/L (15-37); SGPT/ALT 30 U/L (12-78)
[2017-06-22 11:56] LABS: ALK PHOS 83 U/L (45-117); BILIRUBIN,TOTAL 0.6 mg/dL (0.2-1.0); TOT PROT 5.4 g/dl (6.4-8.2)
[2017-06-22 11:59] LABS: TROPONIN I 0.02 ng/ml (0.00-0.05)
[2017-06-22 15:22] VITALS: TEMP 98.6
[2017-06-22 18:34] VITALS: BP 130/78; PULSE 87
--- NOTE | 2017-06-22 18:37 | EKG ---
Test Reason : Blood Pressure : / mmHG Vent. Rate : 080 BPM Atrial Rate : 100 BPM P-R Int : 000 ms QRS Dur : 080 ms QT Int : 360 ms P-R-T Axes : 000 025 058 degrees QTc Int : 415 ms ATRIAL FIBRILLATION ABNORMAL ECG WHEN COMPARED WITH ECG OF 21-JUN-2017 22:26, CRITERIA FOR SEPTAL INFARCT ARE NO LONGER PRESENT Confirmed by MONICA MARTINS MD ([id number]) on 06/22/2017 6:36:47 PM Referred By: Confirmed By:MONICA MARTINS MD
== END 2017-06-22 18:32 | disposition other institution (70) ==
LOC: JER 10:18
PROC: 3E0337Z Introduction of Electrolytic and Water Balance Substance into Peripheral Vein, Percutaneous Approach (ICD-10-PCS; principal; 2017-06-22)
DX: R42 Dizziness and giddiness (principal); I48.91 Unspecified atrial fibrillation; Z79.01 Long term (current) use of anticoagulants; I10 Essential (primary) hypertension; F10.10 Alcohol abuse, uncomplicated
CPT/HCPCS: 36415; 71020-TC; 80053; 81003; 83605; 83690; 83735; 83880; 84484; 85025; 85610; 85730; 93005; 93010; 96360; 99284-25